=== PATIENT | male | born 2005 | race Caucasian/White ===

== ENCOUNTER 2023-09-13 19:57 | Emergency (ER) | payer OTHER, SELFPAY ==
[2023-09-13 19:58] VITALS: BP 114/69
[2023-09-13 20:18] LABS: Urine Albumin Negative (Neg - Trace); Urine Bilirubin Negative (Negative); Urine Character Clear (Clear); Urine Color Straw; Urine Glucose Negative (Negative); Urine Ketone Negative (Negative); Urine Leukocyte Negative (Negative); Urine Nitrite Negative (Negative); Urine Occult Blood Negative (Negative); Urine Specific Gravity 1.005 (<1.030); Urine Urobilinogen Negative (Neg - 1+)
[2023-09-13 21:32] LABS: Glucose - Point of Care 85 mg/dl (70-99)
--- NOTE | 2023-09-13 23:00 | ED.GENMED ---
History of Present Illness
General
Chief Complaint: Male Genito-Urinary Symptoms
Source: patient and family (Mother)
Exam Limitations: none
Time Seen by Provider: 09/13/23 20:33
Nursing documentation reviewed up to this point in time: agreed with
Travel History
Have you had any contact with someone who has COVID-19?: No
Do you have any symptoms of coronavirus? Fever > 100 degrees, chills, cough, shortness of breath, sore throat, loss of taste or smell, muscle aches, or headache?: No
Symptoms:: sore throat
History of Present Illness
History of Present Illness:
Patient to ED wt complaint of left testicular pain, frequent urination. Symptoms started today. Denies fever/chills, recent illness. NO history of trauma. Denies sexual activity. Brought to ED bymother for eval.
Past History
Past History
ED Past Medical History: Other (Autism, occasional VANG)
ED Past Surgical History: Other (n/a)
Social History
Tobacco: Non-smoker
Alcohol: None
Drug: None
Personal: Single
Living: with family
Employment: Employed
Family History
Family History: Other (migraines brain tumor-benign)
Review of Systems
Review of Systems
Allergies reviewed?: Yes
All Other Systems: ROS reviewed and negative except as documented in HPI and ROS
Constitutional: Reports no symptoms
EENT: Reports no symptoms
Respiratory: Reports no symptoms
Cardiac: Reports no symptoms
ABD/GI: Reports no symptoms
: Reports other (left testicular pain, frequent urination)
Musculoskeletal: Reports no symptoms
Skin: Reports no symptoms
Neurological: Reports no symptoms
Psychiatric: Reports no symptoms
Phy Exam
General Physical Exam
General Presentation: well appearing and no apparent distress
General age: appears stated age
General Skin: warm and dry
General Habitus: normal
General Mental: alert
Gastrointestinal Exam
Gastrointestinal Exam: normal bowel sounds, non tender, soft and no organomegaly
Genitourinary Exam Male
Exam Male: circumcised, no discharge, normal external genitalia, normal testicular exam, no evidence of trauma, no lesions, no testicular swelling and no testicular tenderness
Musculoskeletal Exam
Musculoskeletal Exam: full ROM
Skin Exam
Skin Exam: normal color, warm/dry and no rash
Psychiatric Exam
Psychiatric Exam: normal mood/affect
Course
Orders/Labs/Results
Orders:
Orders
09/13/23 20:03
US Scrotum Urgent
Comment:
Reason For Exam: left testicle pain
09/13/23 20:08
Urinalysis Reflex To Culture Urgent
Date Specimen was Collected: 09/13/23
Time Specimen was Collected: 20:01
Chlamydia/GC by PCR Urgent
CINDY Source: Urine
Specimen Description:
Source:: URINE
Date Specimen was Collected: 09/13/23
Time Specimen was Collected: 20:05
09/13/23 21:25
Bedside Glucose- Treatment ONCE
09/13/23 21:28
Ibuprofen [Motrin] 600 mg PO NOW STA
Vital Signs
Initial and Last Documented VS:
Initial Vital Signs
Temp Pulse Resp BP Pulse Ox
98.8 F 96 16 114/69 98
09/13/23 19:58 09/13/23 19:58 09/13/23 19:58 09/13/23 19:58 09/13/23 19:58
Last Documented Vital Signs
Temp Pulse Resp BP Pulse Ox
98.8 F 96 16 114/69 98
09/13/23 19:58 09/13/23 19:58 09/13/23 19:58 09/13/23 19:58 09/13/23 19:58
*Critical Care Note
Total Time (30-74mins, 75-104mins- exclusive of procedures): Not Applicable
Update Note
Update Note:
Normal testicular exam. US with mild left hydrocele otherwise normal. UA without evidence of UTI, STD results pending. Blood sugar bedside 87. Will discharge home and he will follow up with Urology. Given instructions on s/s to return to ED and
he is agreeable to plan
ED Attending Note
-
Portions of this chart may have been created with voice recognition software.� Occasional wrong word or��sound alike� substitutions may have occurred due to the inherent limitations of voice recognition software.
Discharge Plan
Departure
Patient Disposition: Home (Routine Discharge)
Date of Disposition: 09/13/23
Time of Disposition: 21:26
Patient with high blood pressure during this ER visit?: No
Condition: Good
Covid-19: Not Applicable
Discharge Problem:
Pain in left testicle
Instructions: Ibuprofen, Using Cold for Pain
Prescriptions:
No Action
ibuprofen 600 mg tablet
600 mg PO Q8H PRN (Reason: Pain) Qty: 30 0RF
promethazine 25 mg tablet
25 mg PO Q6H PRN (Reason: headache) Qty: 14 2RF
Referrals:
Enrique Mayers MD [Family Provider] -
Alton Haas Jr., MD [Active] - Call in 1-3 days for appt
Interventions
Interventions:
*Risk Screen - Suicide Last Done: 09/13/23 22:15
*General Assessment Last Done: 09/13/23 19:58
*Neglect/Abuse Screening Last Done: 09/13/23 22:15
ED- Fall Risk Assessment Last Done: 09/13/23 22:15
*ED COVID-19 Vaccine History Last Done: 09/13/23 22:15
*Nursing Disposition Last Done: 09/13/23 22:15
ED-Male Genitourinary Assessment Last Done: 09/13/23 21:19
Discharge Date and Time
Discharge Date/Time: 09/13/23 22:00
Print Language: BRITISH
== END 2023-09-13 22:00 | disposition home or self-care (01) ==
LOC: EMR 19:57
PROVIDERS: EMERGENCY PHYSICIAN Emergency Medicine; FAMILY PHYSICIAN Family Medicine
DX: N50.812 Left testicular pain (principal)
CPT/HCPCS: 99285; 76870; 81003; 82962; 87491; 87591; 93976

== ENCOUNTER → 2024-03-09 06:57 | Outpatient (REF) | payer OTHER, SELFPAY | LOC: RAD 06:57 | PROVIDERS: ATTENDING PHYSICIAN Specialist; FAMILY PHYSICIAN Family Medicine | DX: R35.0 Frequency of micturition (principal) | CPT/HCPCS: 76775 ==

== ENCOUNTER → 2025-02-27 14:26 | Outpatient (REF) | payer OTHER, SELFPAY | LOC: RAD 14:26 | PROVIDERS: ATTENDING PHYSICIAN Physician Assistant Medical | DX: R05.9 Cough, unspecified (principal) | CPT/HCPCS: 71046 ==

== ENCOUNTER → 2025-03-16 16:07 | Outpatient (REF) | payer OTHER, SELFPAY | LOC: RAD 16:07 | PROVIDERS: ATTENDING PHYSICIAN Student in an Organized Health Care Education/Training Program | DX: R05.9 Cough, unspecified (principal) | CPT/HCPCS: 71046 ==